=== PATIENT | male | born 1965 | race Caucasian/White ===

== ENCOUNTER 2017-02-10 12:20 | Emergency (ER) | payer OTHER ==
[~2017-02-10] VITALS: Ht 172.7 cm; Wt 73.2 kg
[2017-02-10 12:23] VITALS: TEMP 36.7; Ht 172.7 cm; Wt 73.2 kg
--- NOTE | 2017-02-10 12:47 | DIAGNOSTIC IMAGING REPORT ---
RIGHT HAND 3 VIEWS HISTORY: right hand caught in log splitter COMPARISON: None. FINDINGS: Tiny nondisplaced fracture at the base of the proximal phalanx of the index finger. Dorsal soft tissue swelling at the MCP joints. No radiopaque foreign bodies. IMPRESSION: Tiny nondisplaced fracture at the base of the proximal phalanx of the right index finger. Electronically signed by: Jl Moeller M.D. 02/10/2017 12:46 PM Dictated Date/Time: 02/10/2017 12:45 PM
[2017-02-10] MEDS ORDERED: IBUPROFEN 200 MG TAB PO STA (13:22)
[2017-02-10] MEDS ORDERED: CEPHALEXIN MONOHYDRATE 250 MG CAP PO ONE (13:30)
--- NOTE | 2017-02-10 13:33 | EMERGENCY ROOM VISIT NOTE ---
ED Visit Note First contact with patient: 13:03 CHIEF COMPLAINT: Hand laceration HISTORY OF PRESENT ILLNESS: This 51-year-old male patient presents to the emergency department immediately after cutting the right hand when he got it caught in a log splitter. The bleeding has stopped. Denies weakness or numbness of the hand or fingers. The patient rates the pain as throbbing and 5/ 10. The patient denies any other injuries. The patient's Tetanus shot is up to date. REVIEW OF SYSTEMS: A 6 system review of systems was completed with positives and pertinent negatives listed in the HPI. ALLERGIES: Penicillin MEDICATIONS: Reviewed PMH: Otherwise healthy SOCIAL HISTORY: He does not smoke, occasional alcohol use PHYSICAL EXAM: Vital Signs: Reviewed Nurse's notes, vital signs stable. GENERAL : 51-year-old male, in no acute distress, well-developed, well-nourished. SKIN : There is a 3 cm long laceration on the palmar aspect of the right hand. The edges gape apart with traction. There is no foreign material in the wound and it looks clean. There is [] bleeding. No deep structures such as tendons, bones , or significant blood vessels are seen in the base of the wound. Normal strength and movement of the fingers and wrist. Capillary refill less than 2 seconds. Normal sensation to light and sharp touch. EMERGENCY DEPARTMENT COURSE: I examined the patient. He was given ibuprofen 800 mg for pain. Imaging was performed and reviewed. Hand x-ray FINDINGS: Tiny nondisplaced fracture at the base of the proximal phalanx of the index finger. Dorsal soft tissue swelling at the MCP joints. No radiopaque foreign bodies. IMPRESSION: Tiny nondisplaced fracture at the base of the proximal phalanx of the right index finger. Electronically signed by: Jl Moeller M.D. 02/10/2017 12:46 PM Dictated Date/Time: 02/10/2017 12:45 PM The status of this report is Signed. Draft = Not yet reviewed or approved by Radiologist. Signed = Reviewed and approved by Radiologist. <AttendingPhy></AttendingPhy> <FamilyPhy></FamilyPhy> <PrimaryPhy>No Doctor, Assigned</PrimaryPhy> <UnitNumber>[id number]</UnitNumber> <VisitNumber> [id number]</VisitNumber> <PatientName>REEMA VENTURA</PatientName> <DateOfBirth></DateOfBirth> <Location>[facility]</Location> <ServiceDate>02/10/17</ ServiceDate> <MNE>ESINDI</MNE> <OrderingPhy>ED, PROTOCOL</OrderingPhy> < OrderingPhyMNE>f rep ord dr castellanos</OrderingPhyMNE> <DictatingPhyMNE>f rep dict dr castellanos</DictatingPhyMNE> <CCListMNE>f rep ct mne</CCListMNE> <AdmittingPhyMNE>f pt admit dr castellanos</AdmittingPhyMNE> <AttendingPhyMNE>f pt attend dr castellanos</ AttendingPhyMNE> Verbal consent was obtained to perform the procedure. Using sterile technique the wound was cleansed with Betadine. The area was sterilely draped. 5 ml of 1% buffered lidocaine was used to anesthetize the laceration on the hand. Once the patient was anesthetized, the wound was copiously irrigated under pressure with sterile saline. The wound was explored and was as described above. The laceration was repaired using 8 simple interrupted 5-0 nylon sutures with the wound edges being well approximated. The patient tolerated the procedure well. Hemostasis was achieved. The area was cleaned with sterile saline and dressed with bacitracin ointment and bandage. The patient was given 1 dose of Keflex. His second digit was splinted with a metal splint. The patient was discharged home in good condition. DIAGNOSIS: Hand laceration DISCHARGE INSTRUCTIONS & TREATMENT: Please take the entire course of antibiotics. Please keep the metal splint in place Please follow-up with orthopedics. A number has been provided. Keep wound clean. Do not allow any crusting or dried blood to accumulate on sutures. If this occurs, use a 1:1 solution of hydrogen peroxide/water on a Q- tip to clean the wound. Use an antibiotic ointment for 3-4 days, then let wound dry. Suture removal in 14 days. Return sooner for any signs of infection (increasing redness, swelling, drainage). Ice and elevate for swelling and pain. Ibuprofen 600 mg and Tylenol 1000 mg every 6 hrs for pain.
[2017-02-10] MEDS ORDERED: XYLOCAINE 1%/SOD BICARB 20 ML VIAL INFIL ONE (13:45)
[2017-02-10] MEDS ORDERED: CEPH500C PO (14:25)
[2017-02-10 14:28] VITALS: BP 164/94; PULSE 78; O2SAT 97
--- NOTE | 2017-02-10 14:51 | ORTHOPEDIC CONSULTATION ---
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 Apparently, the patient was splitting logs at a log splitter and cut his right hand caught in the log splitter. He had immediate pain sensation tried to withdraw the hand and had obvious laceration on the volar aspect of the palm and index finger with difficulty with motion of the finger. Once he had applied direct pressure, he then presented to the Emergency Department. His tetanus shot is up to date. He had no other associated injuries. Pain is rated as a 5/10. PAST MEDICAL HISTORY: Denies. PAST SURGICAL HISTORY: Noncontributory. SOCIAL HISTORY: He is . He denies tobacco use, drug use and he only has occasional alcohol use. He is and has 2 children. He is an mechanical facilities technician. He is right hand dominant. ALLERGIES: PENICILLIN. MEDICATIONS: Please note the medication is in the Emergency Department record. PHYSICAL EXAMINATION: GENERAL: The patient is lying supine in is ER transfer cart with his present at bedside. He is alert and oriented x3. Speech clear and fluent. Affect is appropriate. No head or neck trauma. EXTREMITIES: Examination of the right hand demonstrates a volar laceration at the base of the proximal phalanx of the right index finger. It extends into the palm and then slightly into the volar aspect of the right index finger. Skin is pink and warm. Cap refill is less than 2 seconds to the tip of the finger. Sensation is intact throughout. There is some loss of sensation at the site of the laceration. He has discomfort with flexion, extension of the digit. Digit was partially numbed by the Emergency Department PA. However, sensation is largely intact. No deficits with flexion and extension of the right index finger. No significant ecchymosis. IMAGING DATA: Radiographs of the right hand demonstrate a small avulsion fracture at the base of the right index finger. No other fracture lines are appreciated with any of the phalanges or on the metacarpals imaged. IMPRESSION: 1. Right index finger proximal phalanx avulsion fracture. 2. Palmar laceration of the right index finger and volar palm. 3. Log splitter crush injury. RECOMMENDATIONS: After the patient was irrigated with sterile normal saline was given a local anesthetic cleansed with Betadine and normal saline, given 1 dose of Keflex and ibuprofen for pain. He was placed in a sterile dressing with a metallic Alumafoam splint. Rx for PO Keflex and pain medication as per the ER Physician's Senior Financial Consultant. He will be referred to see Dr. Pete in clinic this next week for followup. Ice and elevation for comfort. HAYLEY
== END 2017-02-10 14:40 | disposition home or self-care (01) ==
LOC: C.EDB 12:22 → C.EDD 14:40
DX: S61.411A Laceration without foreign body of right hand, initial encounter (principal); S62.640A Nondisplaced fracture of proximal phalanx of right index finger, initial encounter for closed fracture; W31.2XXA Contact with powered woodworking and forming machines, initial encounter